=== PATIENT | male | born 1955 | race Caucasian/White ===

== ENCOUNTER 2019-11-28 19:16 | Emergency (ER) | payer MEDICARE, BC ==
[~2019-11-28 19:16] MED LIST: Heparin Sodium/D5W 500 ML ONE
[2019-11-28] MEDS ORDERED: Morphine 4 MG/ML Syringe ONE (19:21)
[2019-11-28] MEDS ORDERED: Morphine 4 MG/ML Syringe IVPUSH ONE (19:22)
[2019-11-28] MEDS ORDERED: Metoprolol Tartrate 50 MG Tab PO PRN (19:23)
[2019-11-28] MEDS ORDERED: Sodium Chloride 0.9% 10 ML Syringe FLUSH PRN (19:23)
[2019-11-28] MEDS ORDERED: Heparin Sodium/D5W 25,000 UNITS/500 ML BAG IV SCH ×2 (19:30→19:45)
[2019-11-28] MEDS ORDERED: Clopidogrel 75 MG Tab PO ONE ×2 (19:35→19:43)
--- NOTE | 2019-11-28 19:47 | EDM.PDOC ---
ED HPI GENERAL MEDICAL PROBLEM - General Chief Complaint: Chest Pain Stated Complaint: MED VIA [facility] Time Seen by Provider: 11/28/19 19:23 Source of Information: Reports: Patient, EMS, RN Notes Reviewed History Limitations: Reports: No Limitations - History of Present Illness INITIAL COMMENTS - FREE TEXT/NARRATIVE: 64-year-old gentleman presents the emergency department today via EMS services with complaint of chest pain. He has a known history of coronary artery disease with recent CABG April 2019. He states the chest pain started approximately 1 hour prior with nausea and shortness of breath. EKG was performed by EMS crew on scene at initial evaluation no ST changes were noted. However EMS crew felt leads V1 and V2 did change in route with his chest pain with a 1 mm elevation, EMS crew called a STEMI in route initiated 4000 unit bolus of heparin aspirin was provided in route in combination 4 mg Zofran and 50 mcg fentanyl. On arrival he was still complaining of pain rating it 9 out of 10 he also received 2 doses of nitro Left Chest Pain Score (Numeric/FACES): 5 - Related Data Allergies Allergy/AdvReac Type Severity Reaction Status Date / Time Ghbgacm-Uup-Yvh Reductase Allergy Other Verified 11/28/19 19:23 Inhibitor Past Medical History Cardiovascular History: Reports: CAD, High Cholesterol, Hypertension Social & Family History - Tobacco Use Smoking Status *Q: Unknown Ever Smoked ED ROS GENERAL - Review of Systems Review Of Systems: See Below Constitutional: Reports: No Symptoms Respiratory: Reports: Shortness of Breath Cardiovascular: Reports: Chest Pain GI/Abdominal: Reports: Nausea ED EXAM, GENERAL - Physical Exam Exam: See Below Exam Limited By: No Limitations General Appearance: Alert, Moderate Distress Respiratory/Chest: No Respiratory Distress, Lungs Clear, Normal Breath Sounds, No Accessory Muscle Use, Chest Non-Tender Cardiovascular: Regular Rate, Rhythm, No Murmur GI/Abdominal: Soft, Non-Tender Course - Vital Signs Last Recorded V/S: Last Vital Signs Temp Pulse 72 11/28/19 19:28 Resp BP 171/85 H 11/28/19 19:28 Pulse Ox - Orders/Labs/Meds Orders: Active Orders 24 hr Category Date Time Status Cardiac Monitoring [RC] .As Directed Care 11/28/19 19:23 Active Cardiac Monitoring [RC] STAT Care 11/28/19 19:25 Active Communication Order [RC] Per Unit Routine Care 11/28/19 19:25 Active Communication Order [RC] Per Unit Routine Care 11/28/19 19:25 Active EKG Documentation Completion [RC] ASDIRECTED Care 11/28/19 19:24 Active Peripheral IV Care [RC] . DIRECTED Care 11/28/19 19:24 Active Chest 1V Frontal [CR] Stat Exams 11/28/19 19:24 Ordered CBC WITH AUTO DIFF [HEME] Stat Lab 11/28/19 19:23 Ordered COMPREHENSIVE METABOLIC PN,CMP [CHEM] Stat Lab 11/28/19 19:23 Ordered TROPONIN I [CHEM] Stat Lab 11/28/19 19:23 Ordered Metoprolol Tartrate [Lopressor] Med 11/28/19 19:23 Active 25 mg PO ONETIME PRN Sodium Chloride 0.9% [Saline Flush] Med 11/28/19 19:23 Active 10 ml FLUSH ASDIRECTED PRN ED Antiarrhythmia Med Reflex [OM.PC] Stat Oth 11/28/19 19:24 Ordered Peripheral IV Insertion Adult [OM.PC] Stat Oth 11/28/19 19:23 Ordered Saline Lock Insert [OM.PC] Stat Oth 11/28/19 19:23 Ordered EKG 12 Lead [EK] Stat Ther 11/28/19 19:23 Ordered Medication Orders Metoprolol Tartrate (Lopressor) 25 mg PO ONETIME PRN PRN Reason: Tachycardia Last Admin: 11/28/19 19:28 Dose: 25 mg Sodium Chloride (Saline Flush) 10 ml FLUSH ASDIRECTED PRN PRN Reason: Keep Vein Open Meds: Medications Generic Name Dose Route Start Last Admin Trade Name Freq PRN Reason Stop Dose Admin Metoprolol Tartrate 25 mg 11/28/19 19:23 11/28/19 19:28 Lopressor PO 25 mg ONETIME PRN Administration Tachycardia Sodium Chloride 10 ml 11/28/19 19:23 Saline Flush FLUSH ASDIRECTED PRN Keep Vein Open Discontinued Medications Generic Name Dose Route Start Last Admin Trade Name Freq PRN Reason Stop Dose Admin Clopidogrel Bisulfate 300 mg 11/28/19 19:35 Plavix PO 11/28/19 19:36 ONETIME ONE Heparin Sodium/Dextrose 25,000 units in 500 mls @ 1,723.66 mls/hr 11/28/19 19: 30 Heparin 25,000 Units In D5w 500 Ml IV TITRATE LESLIE Protocol 1,000 UNITS/KG/HR Morphine Sulfate 4 mg 11/28/19 19:22 11/28/19 19:28 Morphine IVPUSH 11/28/19 19:23 4 mg ONETIME ONE Administration Morphine Sulfate Confirm 11/28/19 19:21 11/28/19 19:25 Morphine Administered 11/28/19 19:22 Not Given Dose 4 mg .ROUTE .STK-MED ONE Departure - Departure Time of Disposition: 19:55 Disposition: DC/Tfer to Acute Hospital 02 Reason for Transfer *Q: Other Condition: Poor Clinical Impression: Unstable angina Referrals: PCP,None [Primary Care Provider] - Sepsis Event Note - Focused Exam Vital Signs: Vital Signs Pulse BP 11/28/19 19:28 72 171/85 H Date Exam was Performed: 11/28/19 Time Exam was Performed: 19:38 - My Orders Last 24 Hours: My Active Orders 11/28/19 19:23 Cardiac Monitoring [RC] .As Directed CBC WITH AUTO DIFF [HEME] Stat COMPREHENSIVE METABOLIC PN,CMP [CHEM] Stat TROPONIN I [CHEM] Stat Metoprolol Tartrate [Lopressor] 25 mg PO ONETIME PRN Sodium Chloride 0.9% [Saline Flush] 10 ml FLUSH ASDIRECTED PRN Peripheral IV Insertion Adult [OM.PC] Stat Saline Lock Insert [OM.PC] Stat EKG 12 Lead [EK] Stat 11/28/19 19:24 EKG Documentation Completion [RC] ASDIRECTED Peripheral IV Care [RC] . DIRECTED Chest 1V Frontal [CR] Stat ED Antiarrhythmia Med Reflex [OM.PC] Stat 11/28/19 19:25 Cardiac Monitoring [RC] STAT Communication Order [RC] Per Unit Routine Communication Order [RC] Per Unit Routine - Assessment/Plan Last 24 Hours: My Active Orders 11/28/19 19:23 Cardiac Monitoring [RC] .As Directed CBC WITH AUTO DIFF [HEME] Stat COMPREHENSIVE METABOLIC PN,CMP [CHEM] Stat TROPONIN I [CHEM] Stat Metoprolol Tartrate [Lopressor] 25 mg PO ONETIME PRN Sodium Chloride 0.9% [Saline Flush] 10 ml FLUSH ASDIRECTED PRN Peripheral IV Insertion Adult [OM.PC] Stat Saline Lock Insert [OM.PC] Stat EKG 12 Lead [EK] Stat 11/28/19 19:24 EKG Documentation Completion [RC] ASDIRECTED Peripheral IV Care [RC] . DIRECTED Chest 1V Frontal [CR] Stat ED Antiarrhythmia Med Reflex [OM.PC] Stat 11/28/19 19:25 Cardiac Monitoring [RC] STAT Communication Order [RC] Per Unit Routine Communication Order [RC] Per Unit Routine Plan: Assessment Acuity = acute Site and laterality = unstable angina Etiology = probable coronary artery disease Manifestations = nausea Location of injury = Home Lab values = repeat EKG here does show ST elevation V1 and V2 however no reciprocal changes are appreciated. Plan Initially called and discussed the case with [facility] 1 call approximately 1930 at which time it faxed EKGs for discussion with cardiology. Cardiology did call me back approximately [address] Logan who reviewed EKGs felt EKGs were not meeting the criteria for STEMI however felt this was unstable angina given his patient's history and kindly accepted the patient also discussed the case with cardiology. Prior to departure he received 600 mg of Plavix, 25 mg of metoprolol, 4 mg morphine second IV was placed basic blood work was drawn prior to departure. Also of note patient was initially transported by [facility] ambulance before the patient was unloaded I asked if they would be able to transport the patient to [place] as I was on the phone getting acceptance from cardiology. I was informed they cannot transport any further and we would have to call [facility]. Patient was subsequently transferred Via [facility] to [facility]. This patient was in our emergency department for approximately 30 minutes This note was dictated using [employer]ever voice recognition software please call with any questions on syntax or grammar.
== END 2019-11-28 19:40 ==
LOC: JP.ED 19:16
DX: I25.110 Atherosclerotic heart disease of native coronary artery with unstable angina pectoris (principal); I10 Essential (primary) hypertension; Z95.1 Presence of aortocoronary bypass graft
CPT/HCPCS: 36415; 80053; 84484; 85025; 93005; 93010; 96374; 96375; 99285; A9270; J1644; J2270

== ENCOUNTER 2021-06-08 16:57 | Emergency (ER) | payer MEDICARE, BC ==
[2021-06-08] MEDS ORDERED: Aspirin 81 MG Tab.Chew PO ONE (17:11)
[2021-06-08] MEDS ORDERED: Nitroglycerin 0.4 MG Tab.SL SL PRN (17:16)
--- NOTE | 2021-06-08 17:16 | EDM.PDOC ---
<Christy Newell - Last Filed: 06/08/21 17:12> ED HPI GENERAL MEDICAL PROBLEM - General Chief Complaint: Chest Pain Stated Complaint: CHEST PAIN Time Seen by Provider: 06/08/21 17:12 Source of Information: Reports: Patient History Limitations: Reports: No Limitations - History of Present Illness INITIAL COMMENTS - FREE TEXT/NARRATIVE: pt arrived with a history chest pain which started at 3 pm and has lasted for 2 hours, He had no relief at home with 3 nitros. He has a very complicatd cardiac history. He had a 3 vessel btpass in 2019. He had a stent placed in 2017. He believes he has had about 8 stents. Onset: Today, Sudden Duration: Hour(s):, Other ( he has had 2 hours of pain. ) Location: Reports: Chest Associated Symptoms: Reports: Chest Pain - Related Data Allergies Allergy/AdvReac Type Severity Reaction Status Date / Time Qlgknod-Iki-Mrv Reductase Allergy Other Verified 06/08/21 17:12 Inhibitor Home Meds: Home Meds Alirocumab [Praluent Pen] 150 mg SQ ASDIRECTED 06/08/21 [History] Aspirin [Halfprin] 81 mg PO DAILY 06/08/21 [History] Clopidogrel Bisulfate [Plavix] 75 mg PO DAILY #30 tablet 06/08/21 [Rx] Finasteride 5 mg PO DAILY 06/08/21 [History] Isosorbide Mononitrate [Isosorbide Mononitrate ER] 60 mg PO DAILY 06/08/21 [History] Nitroglycerin 0.4 mg SL ASDIRECTED 06/08/21 [History] amLODIPine [Norvasc] 5 mg PO DAILY 06/08/21 [History] amLODIPine [Norvasc] 10 mg PO DAILY #60 tab 06/08/21 [Rx] carvediloL [Carvedilol] 12.5 mg PO BID 06/08/21 [History] Past Medical History Cardiovascular History: Reports: CAD, High Cholesterol, Hypertension Other Cardiovascular History: CBG in April 2019; 8 stents Musculoskeletal History: Reports: Back Pain, Chronic Other Oncologic History: spinal cord tumor - Past Surgical History Cardiovascular Surgical History: Reports: Coronary Artery Bypass, Coronary Artery Stent Social & Family History - Family History Family Medical History: No Pertinent Family History - Caffeine Use Caffeine Use: Reports: Coffee Caffeine Use Comment: lots of coffee ED ROS GENERAL - Review of Systems Review Of Systems: See Below Constitutional: Reports: No Symptoms HEENT: Reports: No Symptoms Respiratory: Reports: No Symptoms Cardiovascular: Reports: Chest Pain Endocrine: Reports: No Symptoms GI/Abdominal: Reports: No Symptoms : Reports: No Symptoms Musculoskeletal: Reports: No Symptoms Skin: Reports: No Symptoms Neurological: Reports: No Symptoms Psychiatric: Reports: Anxiety Departure - Departure Disposition: Home, Self-Care 01 Clinical Impression: Unstable angina pectoris due to coronary arteriosclerosis, History of coronary artery bypass graft x 3, History of percutaneous transluminal coronary angioplasty Referrals: DARA GARCIA [Other] Forms: ED Department Discharge Care Plan Goals: We are restarting you on your Plavix at 75 mg a day. I am increasing your amlodipine from 5 mg to 10 mg daily. I have prescriptions for both to get filled in the morning. Return to the ED for reevaluation should you develop any significant recurrence of your chest pain. <Raffaele Berry - Last Filed: 06/08/21 20:33> ED HPI GENERAL MEDICAL PROBLEM Anterior Chest Pain Score (Numeric/FACES): 4 ED EXAM, GENERAL - Physical Exam Exam: See Below Exam Limited By: No Limitations General Appearance: Alert, Anxious, Mild Distress Eye Exam: Bilateral Eye: EOMI, PERRL Throat/Mouth: Normal Inspection, Normal Oropharynx, Normal Voice, No Airway Compromise Head: Atraumatic, Normocephalic Neck: Normal Inspection, Supple, Non-Tender, Full Range of Motion Respiratory/Chest: No Respiratory Distress, Lungs Clear, Normal Breath Sounds Cardiovascular: Normal Peripheral Pulses, Regular Rate, Rhythm, No Edema, No JVD, No Murmur Peripheral Pulses: 2+: Radial (L), Radial (R) GI/Abdominal: Normal Bowel Sounds, Soft, Non-Tender Extremities: Normal Inspection, Normal Range of Motion, No Pedal Edema Neurological: Alert, Oriented, Normal Cognition, No Motor/Sensory Deficits Psychiatric: Normal Affect, Normal Mood Skin Exam: Warm, Dry, Intact, Normal Color Lymphatic: No Adenopathy #1 Interpretation EKG Date: 06/08/21 Time: 17:02 Rhythm: NSR Rate (Beats/Min): 58 [place]: LAD-Left [place] Deviation P-Wave: Present QRS: Other (Nonspecific Q waves in leads III RR prime in V1 and V2 possibly due to posterior Q waves) ST-T: Other (Evidence for chronic posterior ST depression.) Comparison: NA - No Prior EKG Course - Vital Signs Last Recorded V/S: Last Vital Signs Temp 36.2 C 06/08/21 17:22 Pulse 55 L 06/08/21 20:00 Resp 17 06/08/21 20:00 BP 153/84 H 06/08/21 20:00 Pulse Ox 96 06/08/21 20:00 - Orders/Labs/Meds Orders: Active Orders 24 hr Category Date Time Status Chest 1V Frontal [CR] Stat Exams 06/08/21 17:11 Taken Clopidogrel [Plavix] Med 06/08/21 20:24 Once 300 mg PO ONETIME ONE Nitroglycerin [Nitrostat] Med 06/08/21 17:16 Active 0.4 mg SL Q5M PRN amLODIPine [Norvasc] Med 06/08/21 20:24 Once 5 mg PO ONETIME ONE Medication Orders Nitroglycerin (Nitroglycerin 0.4 Mg Tab.Sl) 0.4 mg SL Q5M PRN PRN Reason: Chest Pain Last Admin: 06/08/21 17:51 Dose: 0.4 mg Documented by: EJ Labs: Laboratory Tests 06/08/21 06/08/21 06/08/21 Range/Units 17:09 17:09 17:09 WBC 6.7 (4.5-11.0) K/uL RBC 4.89 (4.30-5.90) M/uL Hgb 14.7 (12.0-15.0) g/dL Hct 43.0 (40.0-54.0) % MCV 88 (80-98) fL MCH 30 (27-31) pg MCHC 34 (32-36) % Plt Count 242 (150-400) K/uL Neut % (Auto) 52.4 (36-66) % Lymph % (Auto) 33.5 (24-44) % [place] % (Auto) 11.4 H (2-6) % Eos % (Auto) 2.4 (2-4) % Baso % (Auto) 0.3 (0-1) % Sodium 141 (140-148) mmol/L Potassium 3.8 (3.6-5.2) mmol/L Chloride 105 (100-108) mmol/L Carbon Dioxide 25 (21-32) mmol/L Anion Gap 11.0 (5.0-14.0) mmol/L BUN 15 (7-18) mg/dL Creatinine 1.1 (0.8-1.3) mg/dL Est Cr Clr Drug Dosing 68.45 mL/min Estimated GFR (MDRD) > 60 (>60) Glucose 102 (74-106) mg/dL Calcium 8.4 L (8.5-10.1) mg/dL Total Bilirubin 0.9 (0.2-1.0) mg/dL AST 14 L (15-37) U/L ALT 28 (12-78) U/L Alkaline Phosphatase 66 (46-116) U/L Troponin I < 0.017 (0.000-0.056) ng/mL Total Protein 6.8 (6.4-8.2) g/dL Albumin 3.8 (3.4-5.0) g/dL Globulin 3.0 (2.3-3.5) g/dL Albumin/Globulin Ratio 1.3 (1.2-2.2) 06/08/21 Range/Units 19:06 WBC (4.5-11.0) K/uL RBC (4.30-5.90) M/uL Hgb (12.0-15.0) g/dL Hct (40.0-54.0) % MCV (80-98) fL MCH (27-31) pg MCHC (32-36) % Plt Count (150-400) K/uL Neut % (Auto) (36-66) % Lymph % (Auto) (24-44) % [place] % (Auto) (2-6) % Eos % (Auto) (2-4) % Baso % (Auto) (0-1) % Sodium (140-148) mmol/L Potassium (3.6-5.2) mmol/L Chloride (100-108) mmol/L Carbon Dioxide (21-32) mmol/L Anion Gap (5.0-14.0) mmol/L BUN (7-18) mg/dL Creatinine (0.8-1.3) mg/dL Est Cr Clr Drug Dosing mL/min Estimated GFR (MDRD) (>60) Glucose (74-106) mg/dL Calcium (8.5-10.1) mg/dL Total Bilirubin (0.2-1.0) mg/dL AST (15-37) U/L ALT (12-78) U/L Alkaline Phosphatase (46-116) U/L Troponin I < 0.017 (0.000-0.056) ng/mL Total Protein (6.4-8.2) g/dL Albumin (3.4-5.0) g/dL Globulin (2.3-3.5) g/dL Albumin/Globulin Ratio (1.2-2.2) Meds: Medications Generic Name Dose Route Start Last Admin Trade Name Freq PRN Reason Stop Dose Admin Nitroglycerin 0.4 mg 06/08/21 17:16 06/08/21 17:51 Nitroglycerin 0.4 Mg Tab.Sl SL 0.4 mg Q5M PRN Administration Chest Pain Discontinued Medications Generic Name Dose Route Start Last Admin Trade Name Freq PRN Reason Stop Dose Admin Aspirin 324 mg 06/08/21 17:11 06/08/21 17:20 Aspirin 81 Mg Tab.Chew PO 06/08/21 17:12 324 mg ONETIME ONE Administration Al Hydroxide/Mg Hydroxide 15 0 ml 06/08/21 18:28 06/08/21 19:02 ml/ Lidocaine HCl 15 ml PO 06/08/21 18:29 15 ml ONETIME ONE Administration - Re-Assessments/Exams Free Text/Narrative Re-Assessment/Exam: 06/08/21 20:24 the second troponin returns and is still negative at less than 0.017. Patient is still having 3 out of 10 pain which is sort of his baseline. I discussed the case with Dr. Corey from cardiology at [facility]. They are currently on diversion right now for admissions, however, she does not feel that the patient needs to come over tonight for an emergent angiogram. She is messaging Dr. Cordova and will plan on having that office contact the patient for an angiogram early next week. We did discussed optimizing the patient's medications in the meantime to treat his unstable angina. She agreed to restarting him on the Plavix and will load him with 300 mg today and then 75 mg a day thereafter. We also agreed to increase the amlodipine from 5 mg to 10 mg to offer some vasodilation especially in the coronary beds. I did discuss this with the patient and the family. There is a caveat though and that if the patient develops significant recurrence of his unstable angina he needs to return to the ED for reevaluation at which time we would assess if he needs more emergent intervention. Both the patient and family are in agreement with this plan and he will be discharged. Departure - Departure Time of Disposition: 20:27 Sepsis Event Note (ED) - Focused Exam Vital Signs: Vital Signs Temp Pulse Resp BP BP Pulse Ox 06/08/21 20:00 55 L 17 153/84 H 96 06/08/21 19:30 54 L 16 138/83 96 06/08/21 19:00 57 L 19 134/84 95 06/08/21 18:27 55 L 18 140/86 95 06/08/21 17:51 134/68 06/08/21 17:28 59 L 14 134/68 06/08/21 17:22 36.2 C 59 L 14 162/86 H 98 06/08/21 16:58 36.2 C 59 L 14 162/86 H 98 - Problem List & Annotations (1) History of coronary artery bypass graft x 3 SNOMED Code(s): 527235624, 505251583 Code(s): Z95.1 - PRESENCE OF AORTOCORONARY BYPASS GRAFT Status: Chronic Priority: High Current Visit: Yes (2) History of percutaneous transluminal coronary angioplasty SNOMED Code(s): 852518865, 60446407, 673742183 Code(s): Z98.61 - CORONARY ANGIOPLASTY STATUS Status: Chronic Priority: High Current Visit: Yes (3) Unstable angina pectoris due to coronary arteriosclerosis SNOMED Code(s): 19853669819271190 Code(s): I25.110 - ATHSCL HEART DISEASE OF [place] COR ART W UNSTABLE ANG PCTRS Status: Acute Priority: High Current Visit: Yes - Problem List Review Problem List Initiated/Reviewed/Updated: Yes - My Orders Last 24 Hours: My Active Orders 06/08/21 20:24 Clopidogrel [Plavix] 300 mg PO ONETIME ONE amLODIPine [Norvasc] 5 mg PO ONETIME ONE - Assessment/Plan Last 24 Hours: My Active Orders 06/08/21 20:24 Clopidogrel [Plavix] 300 mg PO ONETIME ONE amLODIPine [Norvasc] 5 mg PO ONETIME ONE
[2021-06-08] MEDS ORDERED: Alum Hydrox/Mag Hydrox/Simeth 15 ML, Lidocaine 2% 15 ML PO ONE ×2 (18:28)
[2021-06-08] MEDS ORDERED: Clopidogrel 75 MG Tab PO ONE (20:24)
[2021-06-08] MEDS ORDERED: amLODIPine 5 MG Tab PO ONE (20:24)
--- NOTE | 2021-06-09 08:57 | CR ---
CHEST: Portable 06/08/2021 at 5:38 PM CLINICAL HISTORY:Chest pain COMPARISON:None FINDINGS: Patient has had previous sternotomy. The heart size, pulmonary vascularity and hilar structures are normal. No infiltrate effusion or pneumothorax is seen. IMPRESSION: No acute cardiopulmonary process.
== END 2021-06-08 20:44 | disposition home or self-care (01) ==
LOC: JP.ED 16:57
DX: I25.110 Atherosclerotic heart disease of native coronary artery with unstable angina pectoris (principal); I10 Essential (primary) hypertension; Z88.8 Allergy status to other drugs, medicaments and biological substances; Z95.1 Presence of aortocoronary bypass graft; Z98.61 Coronary angioplasty status; Z79.82 Long term (current) use of aspirin; Z79.02 Long term (current) use of antithrombotics/antiplatelets; Z79.899 Other long term (current) drug therapy
CPT/HCPCS: 36415; 71045; 80053; 84484; 85025; 99285; A9270

== ENCOUNTER 2022-04-03 05:29 | Day surgery (SDC) | payer MEDICARE, BC ==
[2022-04-03] MEDS ORDERED: Acetaminophen 500 MG Tab PO ONE (06:00)
[2022-04-03] MEDS ORDERED: Dextrose 5%-Lactated Ringers 1,000 ML IV SCH ×2 (06:30→10:00)
[2022-04-03] MEDS ORDERED: Meropenem 500 MG SDV ONE (06:36)
[2022-04-03] MEDS ORDERED: Lidocaine 1% with EPINEPHrine 1:100,000 50 ML MDV ONE (06:36)
[2022-04-03] MEDS ORDERED: Bupivacaine 0.5% 50 ML MDV ONE (06:36)
[2022-04-03] MEDS ORDERED: ceFAZolin 2 GM in Premix Bag 1 BAG IV ONE (07:00)
[2022-04-03] MEDS ORDERED: ceFAZolin 2 GM in Sodium Chloride 0.9% 100 ML IV ONE (07:00)
[2022-04-03] MEDS ORDERED: fentaNYL 100 MCG/2 ML SDV ONE (07:10)
[2022-04-03] MEDS ORDERED: Midazolam 1 MG/ML 2 ML SDV ONE (07:10)
[2022-04-03] MEDS ORDERED: Propofol 200 MG/20 ML SDV ONE ×3 (07:10→08:24)
[2022-04-03] MEDS ORDERED: Glycopyrrolate 0.2 MG/ML 5 ML MDV ONE (08:05)
[2022-04-03] MEDS ORDERED: Ketorolac 30 MG/ML SDV ONE (08:53)
[2022-04-03] MEDS ORDERED: Meropenem 500 MG in Sodium Chloride 0.9% 50 ML IV ONE (09:00)
[2022-04-03] MEDS ORDERED: fentaNYL 50 MCG/ML SDV IVPUSH ONE (09:12)
[2022-04-03] MEDS ORDERED: hydrOXYzine HCL 100 MG/2 ML SDV IM ONE (09:12)
[2022-04-03] MEDS ORDERED: hydrOXYzine HCL 100 MG/2 ML SDV IM PRN (10:03)
[2022-04-03] MEDS ORDERED: Ondansetron 4 MG/2 ML SDV IVPUSH PRN (10:03)
[2022-04-03] MEDS ORDERED: Nitroglycerin 0.4 MG Tab.SL SL PRN (10:05)
[2022-04-03] MEDS: Acetaminophen 325 MG Tab PO SCH ×3 (11:30→23:35)
[2022-04-03] MEDS: Pantoprazole 40 MG Vial IV SCH (11:30)
[2022-04-03] MEDS: HYDROmorphone 2 MG Tab PO PRN ×2 (14:31→20:05)
[2022-04-03] MEDS: Meropenem 500 MG in Sodium Chloride 0.9% 50 ML IV SCH ×2 (15:10→20:08)
[2022-04-03] MEDS: Carvedilol 12.5 MG Tab PO SCH (20:07)
[2022-04-03] MEDS ORDERED: amLODIPine 5 MG Tab PO SCH (21:00)
[2022-04-03] MEDS ORDERED: Finasteride 5 MG Tab PO SCH (21:00)
[2022-04-04] MEDS: HYDROmorphone 2 MG Tab PO PRN ×2 (02:45→09:46)
[2022-04-04] MEDS: Meropenem 500 MG in Sodium Chloride 0.9% 50 ML IV SCH ×2 (02:49→09:41)
[2022-04-04] MEDS: Acetaminophen 325 MG Tab PO SCH (05:57)
[2022-04-04] MEDS ORDERED: Aspirin 81 MG Tab.EC PO SCH (09:00)
[2022-04-04] MEDS ORDERED: Clopidogrel 75 MG Tab PO SCH (09:00)
[2022-04-04] MEDS: Carvedilol 12.5 MG Tab PO SCH (09:41)
[2022-04-04] MEDS: Pantoprazole 40 MG Vial IV SCH (09:42)
== END 2022-04-04 10:50 | disposition home or self-care (01) ==
LOC: JP.SDS 05:29 → JP.MS 08:45 → JP.SDS 04-04 10:50
PROVIDERS: ATTEND Surgery
DX: K40.30 Unilateral inguinal hernia, with obstruction, without gangrene, not specified as recurrent (principal); I25.10 Atherosclerotic heart disease of native coronary artery without angina pectoris; I11.0 Hypertensive heart disease with heart failure; I50.9 Heart failure, unspecified; Z98.890 Other specified postprocedural states; Z79.899 Other long term (current) drug therapy; Z88.8 Allergy status to other drugs, medicaments and biological substances
CPT/HCPCS: A9270-GY; C1713; C1781; C9113; J0690; J1885; J2185; J2250; J2405; J2704; J3010; J3410; J3490; J7121